=== PATIENT | male | born 1985 | race Caucasian/White ===

== ENCOUNTER → 2018-05-11 | Outpatient (CLI) | payer OTHER | LOC: FIMAGING 19:37 | PROVIDERS: ATTEND Orthopaedic Surgery | DX: M23.232 Derangement of other medial meniscus due to old tear or injury, left knee (principal); M23.8X2 Other internal derangements of left knee ==

== ENCOUNTER 2018-10-26 00:32 | Observation (INO) | payer OTHER ==
[2018-10-26] MEDS ORDERED: NS 1,000 ML IV ONE (00:45)
[2018-10-26] MEDS ORDERED: IOHEXOL 300 mgI/ML (OMNIPAQUE) 150 ML BTL IV ONE (00:47)
--- NOTE | 2018-10-26 00:47 | EDPHY ---
H & P Stated Complaint: RLQ pain x1 day Time Seen by Provider: 10/26/18 00:40 HPI/ROS: Chief Complaint: Abdominal pain HPI: 33-year-old healthy male presenting with 36 hr of right lower quadrant abdominal pain. Patient states that pain is dull but has been getting progressively worse over the last day. Does have decreased appetite. No nausea or vomiting. No diarrhea. Some constipation. No fevers or chills. Has not had similar pain in the past. Did have a hernia repair as an infant, no other abdominal surgeries. Pain is about a 7/10. There are no aggravating or alleviating factors. ROS: 10 systems were reviewed and were negative except those elements noted in the HPI. PMH: Denies Social History: No smoking, no alcohol, no recreational drug use Family History: non-contributory Physical Exam: Gen: Awake, Alert, No Distress HEENT: Nose: no rhinorrhea Eyes: PERRLA, EOMI Mouth: Moist mucosa Neck: Supple, no JVD Chest: nontender, lungs clear to auscultation Heart: S1, S2 normal, no murmur Abd: Soft, right lower quadrant tenderness, voluntary guarding, positive Rovsing sign Back: no CVA tenderness, no midline tenderness Ext: no edema, non-tender Skin: no rash Neuro: CN II-XII intact, Sensation grossly intact, Strength 5/5 in bilateral upper and lower extremities - Personal History Current Tetanus/Diphtheria Vaccine: Yes - Medical/Surgical History Hx Asthma: No Hx Chronic Respiratory Disease: No Hx Diabetes: No Hx Cardiac Disease: No Hx Renal Disease: No Hx Cirrhosis: No Hx Alcoholism: No Hx HIV/AIDS: No Hx Splenectomy or Spleen Trauma: No Other PMH: ADD - Social History Smoking Status: Never smoked Constitutional: Initial Vital Signs Temperature (C) 36.4 C 10/26/18 00:34 Heart Rate 72 10/26/18 00:34 Respiratory Rate 16 10/26/18 00:34 Blood Pressure 112/75 10/26/18 00:34 O2 Sat (%) 96 10/26/18 00:34 O2 Delivery Mode Room Air Allergies/Adverse Reactions: No Known Allergies Allergy (Unverified 05/03/18 20:46) Home Medications: Medication Instructions Recorded Amphet Asp and D/Amphet [Adderall 05/03/18 10 MG (*)] Medical Decision Making - Diagnostics Imaging Results: CT scan of the abdomen pelvis is compatible with acute appendicitis. The appendicular with are present. There is mixed density fluid in the right lower quadrant surrounding the appendix. The distal borders of the appendix are not well seen. Findings are concerning for ruptured appendicitis. Study interpreted by Dr. Mingo Baez, direct Radiology. Other Provider: 33-year-old male with acute appendicitis. CT scans concerning for possible rupture. Patient last ate and drank at 6:30 p.m. Yesterday. I have ordered ceftriaxone and Flagyl IV. Discussed with Dr. Lion, general surgery. He will plan on surgical intervention. - Data Points Laboratory Results: Laboratory Results 10/26/18 00:40 10/26/18 00:40 10/26/18 10/26/18 00:40 00:40 WBC 11.62 10^3/uL H 10^3/uL (3.80-9.50) RBC 5.37 10^6/uL 10^6/uL (4.40-6.38) Hgb 16.4 g/dL g/dL (13.7-17.5) Hct 45.9 % % (40.0-51.0) MCV 85.5 fL fL (81.5-99.8) MCH 30.5 pg pg (27.9-34.1) MCHC 35.7 g/dL g/dL (32.4-36.7) RDW 12.5 % % (11.5-15.2) Plt Count 261 10^3/uL 10^3/uL (150-400) MPV 8.3 fL L fL (8.7-11.7) Neut % (Auto) 60.1 % % (39.3-74.2) Lymph % (Auto) 28.9 % % (15.0-45.0) [place] % (Auto) 9.0 % % (4.5-13.0) Eos % (Auto) 1.4 % % (0.6-7.6) Baso % (Auto) 0.3 % % (0.3-1.7) Nucleat RBC Rel Count 0.0 % % (0.0-0.2) Absolute Neuts (auto) 6.98 10^3/uL H 10^3/uL (1.70-6.50) Absolute Lymphs (auto) 3.36 10^3/uL H 10^3/uL (1.00-3.00) Absolute Monos (auto) 1.05 10^3/uL H 10^3/uL (0.30-0.80) Absolute Eos (auto) 0.16 10^3/uL 10^3/uL (0.03-0.40) Absolute Basos (auto) 0.04 10^3/uL 10^3/uL (0.02-0.10) Absolute Nucleated RBC 0.00 10^3/uL 10^3/uL (0-0.01) Immature Gran % 0.3 % % (0.0-1.1) Immature Gran # 0.03 10^3/uL 10^3/uL (0.00-0.10) Sodium 139 mEq/L mEq/L (135-145) Potassium 4.4 mEq/L mEq/L (3.5-5.2) Chloride 107 mEq/L mEq/L (97-110) Carbon Dioxide 23 mEq/l mEq/l (22-31) Anion Gap 9 mEq/L mEq/L (6-14) BUN 16 mg/dL mg/dL (7-23) Creatinine 1.0 mg/dL mg/dL (0.7-1.3) Estimated GFR > 60 Glucose 97 mg/dL mg/dL (70-100) Calcium 9.6 mg/dL mg/dL (8.5-10.4) Medications Given: Discontinued Medications Sodium Chloride (Ns) 1,000 mls @ 0 mls/hr IV ONCE ONE; Wide Open PRN Reason: Protocol Stop: 10/26/18 00:46 Last Admin: 10/26/18 00:48 Dose: 1,000 mls Departure - Departure Disposition: [facility] In[facility] Acute Clinical Impression: Acute appendicitis Condition: Fair Referrals: Chalino Martinez DO [Primary Care Provider] - As per Instructions
[2018-10-26 00:52] LABS: PLATELET COUNT 261 10^3/uL (150-400)
--- NOTE | 2018-10-26 02:36 | PDGENHP ---
History and Physical - Chief Complaint rlq pain- 36 hours of pain, wbc 11 k, ct documented acute appy with appendi - History of Present Illness 36 hours of rlq pn, ct documented acute appy allergies none meds atarol smoke none etoh occ surg- henria, knee ros no asthma, heat truble, diabetes, epilepay, rf social nurse here at [facility] pe heent wnl lungs clear heart nml s1s2 no m abd very tender rlq. plu rebound. no diffuse peritonitis assess; acute appendicitis, possilby contained ruptue on ct recc apopendctomyl lapaorscopic or oepn. risks of infection, bleeding, anesthesia explained to the pt. History Information - Allergies/Home Medication List Allergies/Adverse Reactions: No Known Allergies Allergy (Unverified 05/03/18 20:46) Home Medications: Amphet Asp and D/Amphet [Adderall 10 MG (*)] 05/03/18 [Last Taken Unknown] I have personally reviewed and updated: family history - Social History Smoking Status: Never smoked Review of Systems Review of Systems: ROS: 10pt was reviewed & negative except for what was stated in HPI & below Physical Exam Physical Exam: Temp Pulse Resp BP Pulse Ox 36.6 C 70 16 121/69 H 97 10/26/18 02:12 10/26/18 02:12 10/26/18 02:12 10/26/18 02:12 10/26/18 02:12 Constitutional: no apparent distress Lab Data & Imaging Review 10/26/18 00:40 10/26/18 00:40 WBC 11.62 10^3/uL (3.80-9.50) H 10/26/18 00:40 RBC 5.37 10^6/uL (4.40-6.38) 10/26/18 00:40 Hgb 16.4 g/dL (13.7-17.5) 10/26/18 00:40 Hct 45.9 % (40.0-51.0) 10/26/18 00:40 MCV 85.5 fL (81.5-99.8) 10/26/18 00:40 MCH 30.5 pg (27.9-34.1) 10/26/18 00:40 MCHC 35.7 g/dL (32.4-36.7) 10/26/18 00:40 RDW 12.5 % (11.5-15.2) 10/26/18 00:40 Plt Count 261 10^3/uL (150-400) 10/26/18 00:40 MPV 8.3 fL (8.7-11.7) L 10/26/18 00:40 Neut % (Auto) 60.1 % (39.3-74.2) 10/26/18 00:40 Lymph % (Auto) 28.9 % (15.0-45.0) 10/26/18 00:40 [place] % (Auto) 9.0 % (4.5-13.0) 10/26/18 00:40 Eos % (Auto) 1.4 % (0.6-7.6) 10/26/18 00:40 Baso % (Auto) 0.3 % (0.3-1.7) 10/26/18 00:40 Nucleat RBC Rel Count 0.0 % (0.0-0.2) 10/26/18 00:40 Absolute Neuts (auto) 6.98 10^3/uL (1.70-6.50) H 10/26/18 00:40 Absolute Lymphs (auto) 3.36 10^3/uL (1.00-3.00) H 10/26/18 00:40 Absolute Monos (auto) 1.05 10^3/uL (0.30-0.80) H 10/26/18 00:40 Absolute Eos (auto) 0.16 10^3/uL (0.03-0.40) 10/26/18 00:40 Absolute Basos (auto) 0.04 10^3/uL (0.02-0.10) 10/26/18 00:40 Absolute Nucleated RBC 0.00 10^3/uL (0-0.01) 10/26/18 00:40 Immature Gran % 0.3 % (0.0-1.1) 10/26/18 00:40 Immature Gran # 0.03 10^3/uL (0.00-0.10) 10/26/18 00:40 Sodium 139 mEq/L (135-145) 10/26/18 00:40 Potassium 4.4 mEq/L (3.5-5.2) 10/26/18 00:40 Chloride 107 mEq/L (97-110) 10/26/18 00:40 Carbon Dioxide 23 mEq/l (22-31) 10/26/18 00:40 Anion Gap 9 mEq/L (6-14) 10/26/18 00:40 BUN 16 mg/dL (7-23) 10/26/18 00:40 Creatinine 1.0 mg/dL (0.7-1.3) 10/26/18 00:40 Estimated GFR > 60 10/26/18 00:40 Glucose 97 mg/dL (70-100) 10/26/18 00:40 Calcium 9.6 mg/dL (8.5-10.4) 10/26/18 00:40 Visualized and Interpreted Chest x-ray results: Yes Assessment & Plan Assessment: Acute appendicitis (Acute) rt33
[2018-10-26] MEDS ORDERED: EPINEPHrine 1 MG/ML INJ ONE (02:45)
[2018-10-26] MEDS ORDERED: BUPIVACAINE 0.5% 30 ML SDV ONE (02:45)
[2018-10-26] MEDS ORDERED: fentaNYL 250 MCG/5 ML INJ ONE (02:51)
[2018-10-26] MEDS ORDERED: PROPOFOL 200 MG/20 ML VIAL ONE (02:51)
[2018-10-26] MEDS ORDERED: ROCURONIUM 50 MG/5 ML VIAL ONE ×2 (02:51→04:02)
[2018-10-26] MEDS ORDERED: DEXAMETHASONE 4 MG/ML VIAL ONE (02:52)
--- NOTE | 2018-10-26 02:57 | PDANEPAE ---
ANE History of Present Illness Appendicitis. ANE Past Medical History - Cardiovascular History Hx Hypertension: No Hx Arrhythmias: No Hx Chest Pain: No Hx Coronary Artery / Peripheral Vascular Disease: No Hx CHF / Valvular Disease: No Hx Palpitations: No - Pulmonary History Hx COPD: No Hx Asthma/Reactive Airway Disease: No Hx Recent Upper Respiratory Infection: No Hx Oxygen in Use at Home: No Hx Sleep Apnea: No - Endocrine History Hx Diabetes: No Hypothyroid: No Hyperthyroid: No Obesity: no - Renal History Hx Renal Disorders: No - Liver History Hx Hepatic Disorders: No - Neurological & Psychiatric Hx Hx Neurological and Psychiatric Disorders: Yes Neurological / Psychiatric History Comment: ADHD - Cancer History Hx Cancer: No - GI History GERD: no - Chronic Pain History Chronic Pain: No - Surgical History Prior Surgeries: cryptorchidism repair, L knee meniscal repair ANE Review of Systems Review of Systems: - Exercise capacity Exercise capacity: <4 METS ANE Patient History - Allergies Allergies/Adverse Reactions: No Known Allergies Allergy (Unverified 05/03/18 20:46) - Home Medications Home Medications: Amphet Asp and D/Amphet [Adderall 10 MG (*)] 05/03/18 [Last Taken Unknown] - NPO status NPO Since - Liquids (Date): 10/25/18 NPO Since - Liquids (Time): 18:30 NPO Since - Solids (Date): 10/25/18 NPO Since - Solids (Time): 18:30 - Anes Hx Anes Hx: no prior problems - Smoking Hx Smoking Status: Never smoked Marijuana use: No - Alcohol Use Alcohol Use: Occasionally - Family Anes Hx Family Anes Hx: none ANE Labs/Vital Signs - Labs Result Diagrams: 10/26/18 00:40 10/26/18 00:40 - Vital Signs Blood Pressure: 121/69 Heart Rate: 70 Respiratory Rate: 16 O2 Sat (%): 97 Height: 172.72 cm Weight: 83.915 kg ANE Physical Exam - Airway Neck exam: FROM Mallampati Score: Class 2 Mouth exam: normal dental/mouth exam - Pulmonary Pulmonary: clear to auscultation - Cardiovascular Cardiovascular: regular rate and rhythym - ASA Status ASA Status: II, E ANE Anesthesia Plan Anesthesia Plan: general endotracheal anesthesia
[2018-10-26] MEDS ORDERED: MIDAZOLAM 2 MG/2 ML VIAL IVP ONE (03:04)
[2018-10-26] MEDS ORDERED: MIDAZOLAM 2 MG/2 ML VIAL ONE (03:09)
[2018-10-26] MEDS ORDERED: LR 1,000 ML IV ONE (03:17)
[2018-10-26] MEDS ORDERED: ONDANSETRON 4 MG/2 ML VIAL ONE (04:03)
[2018-10-26] MEDS ORDERED: GLYCOPYRROLATE 0.2 MG/1 ML VIAL ONE (04:54)
[2018-10-26] MEDS ORDERED: NEOSTIGMINE METHYLSULFATE 5 MG/5 ML SYR ONE (04:54)
[2018-10-26] MEDS ORDERED: ONDANSETRON 4 MG/2 ML VIAL IVP PRN (04:58)
[2018-10-26] MEDS ORDERED: NALOXONE HCL 0.4 MG/ML INJ IVP PRN (04:58)
[2018-10-26] MEDS ORDERED: fentaNYL 100 MCG/2 ML INJ IVP PRN (04:58)
[2018-10-26] MEDS ORDERED: PROMETHAZINE HCL 25 MG/ML INJ IVP PRN (04:58)
[2018-10-26] MEDS ORDERED: HYDROCODONE/APAP 5/325 TAB PO PRN (05:13)
--- NOTE | 2018-10-26 05:17 | POSTANESTH ---
Post Anesthetic Evaluation Cardiovascular Status: Normal, Stable Respiratory Status: Normal, Stable Level of Consciousness/Mental Status: Can Participate in Eval Pain Control: Adequate, Prn Tx Ordered Nausea/Vomiting Control: Adequate, Prn Tx Ordered Complications Possibly Related to Anesthesia: None Noted
--- NOTE | 2018-10-26 05:18 | POSTOPPROG ---
Post Op Note Date of Operation: 10/26/18 Surgeon: Zan Lion Pre-op Diagnosis: acute appy Post-op Diagnosis: same Indication: same Procedure: appendeotmy, laparoscopic Findings: acute appy, very adhesed and fibrotic Inf/Abcess present in the surg proc area at time of surgery?: No
[2018-10-26] MEDS ORDERED: LR 1,000 ML IV SCH (05:30)
[2018-10-26] MEDS ORDERED: KETOROLAC 15 MG/1 ML SDV IVP SCH (06:00)
--- NOTE | 2018-10-26 06:12 | GOP ---
[f rep st] OPERATIVE REPORT DATE OF OPERATION: SURGEON: Zan Lion MD PREOPERATIVE DIAGNOSIS: Acute appendicitis. POSTOPERATIVE DIAGNOSIS: Acute appendicitis. PROCEDURE PERFORMED: Laparoscopic appendectomy. FINDINGS: INDICATIONS: 33-year-old male with a CT scan documenting acute appendicitis. DESCRIPTION OF PROCEDURE: Under general anesthetic, the abdomen scrubbed with ChloraPrep, draped in usual sterile fashion. Infraumbilical incision made. Veress needle used to achieve a pneumoperitone um. A 12 mm port was placed. Two additional 5 mm ports. The viscera was examined. The appendix an d cecum were adhesed into the right flank and careful dissection eventually allowed the cecum to be d ropped back towards the midline. The appendix was almost impossible to identify. The tip of the slade endix could be seen, but it was extremely adherent to the terminal ileum and this area was carefully dissected, such that it was from the terminal ileum. The appendix then curled back on itse lf and eventually the cecal junction was identified. All the mesoappendix and adjacent fat were extr susan inflamed, and it proved to be a very difficult laparoscopic appendectomy. Eventually the base of the cecum was identified and the appendix amputated on the cecum with an EndoGIA 45 blue cartridge . There was no significant bleeding. All irrigation fluid was aspirated from the abdomen. To remov e the thickened inflamed appendix, the fascial defect at the umbilicus had to be lengthened somewhat after the appendix was removed in an Endopouch. This was closed with several [id number] 0 Vicry l sutures. All skin incisions closed with 4-0 Vicryl and Dermabond. The patient tolerated the proce dure well. /[id number]/MODL
[2018-10-26 07:16] VITALS: BP 119/74
--- NOTE | 2018-10-26 10:33 | ASDISCHSUM ---
Discharge Information Plan Status:Home with No Needs Medically Cleared to Leave:10/25/2018 Discharge Date:10/25/2018 CM D/C Disposition:Home, Routine, Self-Care ADT D/C Disposition:Home, Routine, Self-Care Projected Discharge Date:10/25/2018 Transportation at D/C: Discharge Delay Reason: Follow-Up Date:10/25/2018 Discharge Slot: Final Diagnosis: Placement Information Patient Contact Information Contact Name:NATE Relationship: Address:[facility] [address] City:[place] Phone: [facility]/Zip Code:[place] [address] Email: Financial Information Financial Class:[facility] Primary Plan Desc:[facility] Primary Plan Number:[id number] Secondary Plan Desc: Secondary Plan Number: Assessment Information LACE LACE Length of stay for Answers: Less than 1 day current admission Acuity / Level of Answers: No Care: Did the patient have an inpatient admission? Comorbidities - select Answers: Other Notes: appendectomy all that apply # of Emergency department Answers: 1-2 visits in the last 6 months Score: 2 Date Signed: 10/26/2018 10:32 AM Electronically Signed By:Inessa Cedillo RN Intervention Information
== END 2018-10-26 10:33 | disposition home or self-care (01) ==
LOC: F2W 05:45
PROVIDERS: ADMIT Surgery; ATTEND Surgery
PROC: 0DTJ4ZZ Resection of Appendix, Percutaneous Endoscopic Approach (ICD-10-PCS; principal; 2018-10-26 03:30)
DX: K35.80 Unspecified acute appendicitis (principal)
CPT/HCPCS: 44970; 74177; G0378; 96374; J0171; J0696; J1100; J1885; J2250; J2270; J2405; J2550; J2704; J2710; J3010; Q9967